=== PATIENT | male | born 2000 | race Caucasian/White ===

== ENCOUNTER 2022-08-22 07:31 | Emergency (ER) | payer OTHER, SELFPAY ==
[2022-08-22 07:40] VITALS: BP 105/72; PULSE 96; RESP 16; TEMP 36; O2SAT 95; BMI 28.3
--- NOTE | 2022-08-22 07:53 | CRLHL7_ITS ---
For Patients: As a result of the Century Cures Act, medical imaging exams and procedure reports are released immediately into your electronic medical record. You may view this report before your referring provider. If you have questions, please contact your health care provider. INDICATION: Right lower quadrant pain. TECHNIQUE: CT abdomen and pelvis without contrast. COMPARISON: None. FINDINGS: Lower chest: Unremarkable. Liver: Normal in size and attenuation. No suspicious masses. Gallbladder and bile ducts: No stones or inflammation. No biliary dilatation. Pancreas: Unremarkable. No mass or inflammation. Spleen: Normal in size. No masses. Adrenal glands: Normal in size. No nodules. Kidneys: 3 millimeter stone at the right UVJ results in trace right hydronephrosis. No other urinary tract calculi. No left hydronephrosis. GI tract: Unremarkable. Normal in caliber. No sign of mass or inflammation. Normal appendix. Vasculature: Abdominal aorta is normal in caliber. Lymph nodes: No lymphadenopathy. Peritoneum/Abdominal Wall: Unremarkable. No sign of mass or infiltration. No free air or significant free fluid. Pelvis: Unremarkable. No pelvic masses. Bones: No acute osseous abnormality. Chronic appearing slight fragmentation in the anterior-inferior aspect of the right sacrum adjacent to the sacroiliac joint (coronal series 7, image 87), likely developmental or potentially reflective of remote trauma or inflammation. IMPRESSION: 3 millimeter stone at the right UVJ results in trace right hydronephrosis. Please note that all CT scans at this facility use dose modulation, iterative reconstruction, and/or weight-based dosing when appropriate to reduce radiation dose to as low as reasonably achievable. Dictated by Geovanni So MD @ 08/22/2022 9:01:22 AM (Electronically Signed)
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
[2022-08-22] MEDS: ONDANSETRON 2 MG/ML inj 4 MG IVP (08:08)
[2022-08-22] MEDS: KETOROLAC 15 MG/ML inj IVP (08:08)
[2022-08-22 08:22] LABS: Basophils Absolute Auto 0.03 K/uL (0.00-0.30); Basophils Percent Auto 0.5 % (0.0-3.0); Eosinophils Absolute Auto 0.14 K/uL (0.00-0.50); Eosinophils Percent Auto 2.1 % (0.0-7.0); Hematocrit 42.8 % (37.0-53.0); Hemoglobin* 14.7 gm/dL (13.5-17.5); Lymphocytes Percent Auto 18.2 % (20-44); Mean Corpuscular HGB Conc 34 gm/dL (32-36); Mean Corpuscular Hemoglobin 30 pg (26-34); Mean Corpuscular Volume 87 fL (80-100); Monocytes Percent Auto 8.3 % (0.0-11.0); Neutrophils Absolute Auto 4.67 K/uL (1.7-7.0); Neutrophils Percent Auto 70.9 % (42.0-72.0); Platelet Count* 175 K/uL (140-440); RDW Coefficient of Variation % 11.8 % (11.5-15.5); Red Blood Count 4.94 m/uL (4.30-5.90); White Blood Count* 6.59 K/uL (4.50-11.00)
[2022-08-22 08:28] LABS: Slide Review Reflex No
[2022-08-22 08:29] LABS: Appearance Urine Slightly Cloudy (Clear); Bilirubin Urine Negative (Negative); Blood Urine 3+ (Negative); Color Urine Yellow (Yellow); Glucose Urine Negative (Negative); Ketones Urine 1+ (Negative); Leukocyte Esterase Urine Negative (Negative); Nitrite Urine Negative (Negative); Protein Urine 1+ (Negative); Urobilinogen Urine 0.2 (0.2-1.0); pH Urine 8.5 (5.0-8.5)
[2022-08-22 08:33] LABS: Chloride* 105 mmol/L (96-114); Potassium* 3.6 mmol/L (3.6-5.1); Sodium* 137 mmol/L (135-149)
[2022-08-22] MEDS: 0.9 % SODIUM CHLORIDE 1000 ml 1,000 ML IV (08:35)
[2022-08-22 08:36] LABS: Blood Urea Nitrogen* 12 mg/dL (5-24); Carbon Dioxide* 20 mmol/L (20-32); Est. Creatinine Clearance* 101.65; Estimated Glomerular Filt Rate 110 ml/min
[2022-08-22 08:37] LABS: Calcium* 9.7 mg/dL (8.4-10.6); Glucose* 147 mg/dL (60-115)
[2022-08-22 08:39] LABS: Amorphous Sediment Urine Moderate; Bacteria Urine Few; Squamous Epithelial Cell Urine Few (None-Few)
--- NOTE | 2022-08-22 08:39 | ED.NURSE ---
pain has improved after receiving the Toradol 15 mg IVP. rating at 1/10 scale. Infusing the 0.9% normal saline one liter now.
== END 2022-08-22 09:50 | disposition home or self-care (01) ==
PROVIDERS: Family Medicine; Emergency Provider Family Medicine
DX: N23 Unspecified renal colic (principal); N20.0 Calculus of kidney
CPT/HCPCS: 36415; 74176; 80048; 81001; 85025; 87086; 96374; 96375; 99284; J1885; J2405; J7030

== ENCOUNTER 2022-12-06 21:20 | Emergency (ER) | payer OTHER, SELFPAY ==
[2022-12-06 21:59] VITALS: BP 123/86; PULSE 100; RESP 20; TEMP 36.6; O2SAT 98; BMI 27.9
--- NOTE | 2022-12-06 22:45 | ED_ITS ---
HPI - General Adult General Chief complaint: Abdominal Pain Stated complaint: Abdominal pain Time Seen by Provider: 12/06/22 22:45 History of Present Illness HPI narrative: Pt aox4, ABCs intact. Pt arrives with significant other for evaluation of over abdominal pain since last night. Patient states that he has a hx of irregular bowel movements and feels like he needs to have one but is unable. Patient states that he did have a bowel movement this morning that was like snot states that it might feel like a prior kidney stone. Patient did take left over ketorolac and it only helped last night, he states that he tried to take it again tonight but had no relief in his pain. Patient also nauseated and had emesis x1, denies any difficulty urinating. Only relief comes from heating pack and laying flat. 22-year-old man presenting to the emergency department with concern of abdominal pain History could be stones of the beginning of this severe cramping in the suprapubic area felt similar. It took ketorolac and maybe that helped initially. Did not help today. Stool today was low mucousy had a stool yesterday as well. Does not describe any hematochezia. There has been no fever. He did vomit once on the way over here except was due to nerves. Seems to feel better with a heating pack and lying flat. Related Data Previous Rx's Medication Instructions Recorded tamsulosin 0.4 mg capsule (Flomax) 0.4 mg PO DAILY #15 caps 12/07/22 Allergies Allergy/AdvReac Type Severity Reaction Status Date / Time No Known Drug Allergies Allergy Verified 12/06/22 21:59 Review of Systems Status of ROS: Reports: 6 or more systems reviewed and unremarkable except as noted in History and below [facility] Social History Smoking Status: Current every day smoker Do you use any of these nicotine containing products: Vaping Products Second hand tobacco smoke exposure: No How often do you have a drink containing alcohol: 4 or more times a week How many standard drinks containing alcohol do you have on a typical day: 1 or 2 How often do you have six or more drinks on one occasion: Never AUDIT-C Alcohol total score: 4 Non-prescribed substance use: marijuana (any form) service: No Exam Narrative: Exam Narrative: Pleasant. NAD. Breathing easily. Skin is warm and dry. Well-perfused peripherally without edema. Lungs are clear. Heart is elevated in rate and in a regular rhythm. Abdomen with normoactive bowel sounds is soft however he is moderately uncomfortable to deep palpation suprapubic area. I do not appreciate mass though. No flank pain. Const: Vital Signs, click to edit/add: Vital Signs - 24 hr 12/06/22 21:59 Temperature 98 F Pulse Rate [Pulse Oximeter] 100 Respiratory Rate 20 Blood Pressure [Ri ght Upper Arm] 123/86 Pulse Oximetry 98 Oxygen Delivery Me thod Room Air Documenting provider has reviewed patient's vital signs: yes Course Vital Signs Vital signs: Initial Vital Signs Temperature 98 F 12/06/22 21:59 Temperature Source Temporal Artery Scan 12/06/22 21:59 Pulse Rate 100 12/06/22 21:59 Respiratory Rate 20 12/06/22 21:59 Blood Pressure 123/86 12/06/22 21:59 Blood Pressure Mean 98 12/06/22 21:59 Pulse Oximetry 98 12/06/22 21:59 Oxygen Delivery Method Room Air 12/06/22 21:59 Vital Signs Temperature 98 F 12/06/22 21:59 Pulse Rate 100 12/06/22 21:59 Respiratory Rate 20 12/06/22 21:59 Blood Pressure 123/86 12/06/22 21:59 Pulse Oximetry 98 12/06/22 21:59 Oxygen Delivery Method Room Air 12/06/22 21:59 Temperature 98.4 F 12/07/22 00:41 Pulse Rate 79 12/07/22 00:41 Respiratory Rate 16 12/07/22 00:41 Blood Pressure 112/71 12/07/22 00:41 Pulse Oximetry 98 12/06/22 21:59 Oxygen Delivery Method Room Air 12/06/22 21:59 Medical Decision Making MDM Narrative Medical decision making narrative: Leading the differential I would say is diverticulitis verses ureteral ston e/colic. Doubtful appendicitis given location of pain. Possible mesenteric adenitis. Possibly urinary retention maybe constipation. Check labs looking for red flags and IV hydrate, ketorolac. I might expect a young man like this creatinine to be a little bit lower. His was 1.1. White count is reassuring. 2+ protein in urine. Did receive tamsulosin for what seems to be ureteral colic. I am thinking may have passed a small stone but I do not think warrants imaging at this point; he is in agreement and would like to defer. See patient discharge plan Medical Records Medical records reviewed: Yes I reviewed the patient's medical records Lab Data Lab results reviewed: Yes I reviewed the patient's lab results Labs: Lab Results 12/06/22 12/06/22 Range/Units 23:00 23:15 WBC 6.98 (4.50-11.00) K/uL RBC 4.94 (4.30-5.90) m/uL Hgb 14.8 (13.5-17.5) gm/dL Hct 43.3 (37.0-53.0) % MCV 88 (80-100) fL MCH 30 (26-34) pg MCHC 34 (32-36) gm/dL RDW Coeff of Radha 11.7 (11.5-15.5) % Plt Count 230 (140-440) K/uL Neut % (Auto) 68.1 (42.0-72.0) % Lymph % (Auto) 21.2 (20-44) % [place] % (Auto) 9.2 (0.0-11.0) % Eos % (Auto) 1.0 (0.0-7.0) % Baso % (Auto) 0.4 (0.0-3.0) % Neut # (Auto) 4.75 (1.7-7.0) K/uL Lymph # (Auto) 1.48 (0.90-2.90) K/uL [place] # (Auto) 0.60 (0.00-0.90) K/UL Eos # (Auto) 0.07 (0.00-0.50) K/uL Baso # (Auto) 0.03 (0.00-0.30) K/uL Abs Immat Gran (auto) 0.01 (0.00-0.30) K/uL Imm/Tot Granulo (auto) 0.1 % Sodium 139 (135-149) mmol/L Potassium 3.8 (3.6-5.1) mmol/L Chloride 107 (96-114) mmol/L Carbon Dioxide 23 (20-32) mmol/L Anion Gap 9 (7-15) mEq/L BUN 16 (5-24) mg/dL Creatinine 1.1 (0.5-1.5) mg/dL Estimated Creat Clear 95.06 Estimated GFR 97 ml/min Glucose 90 (60-115) mg/dL Calcium 9.7 (8.4-10.6) mg/dL C-Reactive Protein < 0.5 L (0.5-1.0) mg/dL Urine Color Yellow (Yellow) Urine Appearance Slightly Cloudy A (Clear) Urine pH 7.0 (5.0-8.5) Ur Specific [place] 1.020 (1.000-1.030) Urine Protein 2+ A (Negative) Urine Glucose (UA) Negative (Negative) Urine Ketones Trace A (Negative) Urine Blood Trace-intact A (Negative) Urine Nitrite Negative (Negative) Urine Bilirubin Negative (Negative) Urine Urobilinogen 0.2 (0.2-1.0) Ur Leukocyte Esterase Negative (Negative) Urine RBC 0-2 (0-2) Urine WBC 0-2 (0-5) Ur Squamous Epith Cells Few (None-Few) Amorphous Sediment Moderate A (None) Urine Bacteria Few A (None) Discharge Plan Discharge Clinical Impression: Ureteral colic, Suprapubic abdominal pain Patient Disposition: Home w/ Parent or Adult Condition: Improved Additional Instructions: I wonder if you may have a small stone about to pass. Consider straining your urine over this next week. Often though nothing is found. Focus on hydration. Can take up to 800 mg of ibuprofen or up to 1000 mg of acetaminophen per dose. Alternative to the ibuprofen could be up to 500 mg naproxen 2 times daily. Return for marked in persistent increase in pain, fever, intractable vomiting. Take Flomax through 1 week or until resolution of discomfort. Zofran and [place] from [facility]. Keep in mind that each tablet of [place] contains 325 mg of acetaminophen. Can take ibuprofen or naproxen with [place]. Prescriptions: New tamsulosin [Flomax] 0.4 mg capsule 0.4 mg PO DAILY Qty: 15 0RF Follow Up/Referrals: Provider,Not a Local [Primary Care Provider] - Stand Alone Forms: [employer] Info Instructions
[2022-12-06 23:13] LABS: Basophils Absolute Auto 0.03 K/uL (0.00-0.30); Basophils Percent Auto 0.4 % (0.0-3.0); Eosinophils Absolute Auto 0.07 K/uL (0.00-0.50); Hematocrit 43.3 % (37.0-53.0); Hemoglobin* 14.8 gm/dL (13.5-17.5); Immature Granulocytes Abs Auto 0.01 K/uL (0.00-0.30); Immature Granulocytes Pct Auto 0.1 %; Lymphocytes Absolute Auto 1.48 K/uL (0.90-2.90); Lymphocytes Percent Auto 21.2 % (20-44); Mean Corpuscular HGB Conc 34 gm/dL (32-36); Mean Corpuscular Hemoglobin 30 pg (26-34); Mean Corpuscular Volume 88 fL (80-100); Monocytes Percent Auto 9.2 % (0.0-11.0); Neutrophils Absolute Auto 4.75 K/uL (1.7-7.0); Neutrophils Percent Auto 68.1 % (42.0-72.0); Platelet Count* 230 K/uL (140-440); RDW Coefficient of Variation % 11.7 % (11.5-15.5); Red Blood Count 4.94 m/uL (4.30-5.90); White Blood Count* 6.98 K/uL (4.50-11.00)
[2022-12-06] MEDS: 0.9 % SODIUM CHLORIDE 1000 ml 1,000 ML IV (23:13)
[2022-12-06] MEDS: KETOROLAC 30 MG/ML inj IVP (23:13)
[2022-12-06] MEDS: ONDANSETRON 2 MG/ML inj 4 MG IVP (23:14)
[2022-12-06 23:19] LABS: Slide Review Reflex No
[2022-12-06 23:20] LABS: Appearance Urine Slightly Cloudy (Clear); Bilirubin Urine Negative (Negative); Blood Urine Trace-intact (Negative); Color Urine Yellow (Yellow); Glucose Urine Negative (Negative); Ketones Urine Trace (Negative); Leukocyte Esterase Urine Negative (Negative); Nitrite Urine Negative (Negative); Protein Urine 2+ (Negative); Urobilinogen Urine 0.2 (0.2-1.0)
[2022-12-06 23:23] LABS: Amorphous Sediment Urine Moderate; Bacteria Urine Few; RBC Urine 0-2 (0-2); Squamous Epithelial Cell Urine Few (None-Few); WBC Urine 0-2 (0-5)
[2022-12-06 23:24] LABS: Chloride* 107 mmol/L (96-114); Potassium* 3.8 mmol/L (3.6-5.1); Sodium* 139 mmol/L (135-149)
[2022-12-06 23:27] LABS: Creatinine* 1.1 mg/dL (0.5-1.5); Est. Creatinine Clearance* 95.06; Estimated Glomerular Filt Rate 97 ml/min
[2022-12-06 23:28] LABS: Anion Gap 9 mEq/L (7-15); Blood Urea Nitrogen* 16 mg/dL (5-24); Calcium* 9.7 mg/dL (8.4-10.6); Carbon Dioxide* 23 mmol/L (20-32); Glucose* 90 mg/dL (60-115)
[2022-12-06 23:32] LABS: C Reactive Protein* < 0.5 mg/dL (0.5-1.0)
[2022-12-07 00:09] VITALS: TEMP 36.6
[2022-12-07] MEDS: TAMSULOSIN HCL 0.4 MG CAPSULE PO (00:28)
[2022-12-07 00:41] VITALS: BP 112/71; PULSE 79; RESP 16; TEMP 36.9
== END 2022-12-07 00:42 | disposition home or self-care (01) ==
PROVIDERS: Emergency Provider Family Medicine
DX: N23 Unspecified renal colic (principal); R10.30 Lower abdominal pain, unspecified
CPT/HCPCS: 36415; 80048; 81001; 85025; 86140; 87086; 96374; 96375; 99283; 99284; A9270; J1885; J2405; J7030

== ENCOUNTER 2023-07-13 10:08 | Emergency (ER) | payer OTHER, SELFPAY ==
[2023-07-13 10:12] VITALS: BP 115/79; PULSE 82; RESP 18; TEMP 37.4; O2SAT 100; BMI 25.8
--- NOTE | 2023-07-13 10:39 | XR_ITS ---
Patient: GIAN LAWSON Facility:?[facility] Patient ID:?[id number] Site Patient ID:?[id number]. Site :?[id number] Study:?XRay-Chest 2V-07/13/2023 10:48:10 AM Ordering Physician:NAHUM Final Report: Indication: Chest pain Technique: PA and lateral views of the chest. Comparison: None. Findings: Normal cardiomediastinal silhouette. No focal consolidation, pleural effusions, or visualized pneumothorax. Impression: No acute cardiopulmonary disease. Dictated by John Zuluaga MD @ 07/13/2023 10:49:35 AM Signed by:?John Zuluaga MD @07/13/2023 10:49:35 AM (Electronic Signature)
--- NOTE | 2023-07-13 10:44 | ED.CHESTPAIN ---
HPI - Chest Pain General Date Seen: 07/13/23 Chief Complaint: Chest Pain Stated Complaint: chest pain Time Seen by Provider: 07/13/23 10:08 Source: patient Mode of arrival: ambulatory Limitations: no limitations History of Present Illness HPI narrative: Patient is a 22-year-old male presenting for left precordial chest pain that is intermittent and sharp in nature. Has been going on for the past 5 days. Denies ever having symptoms like this before. States in the pain does occur he does feel like it is hard to breathe but otherwise is not having any shortness of breath. Pain does radiate from his sternum to left side of his chest. Does note he has had some worsening tightness with vaping so has been trying of May as since the symptoms started. Also states he has some brain fog in the patient's girlfriend thinks he looks more yellow than normal. Denies having any cardiac problems but does have an uncle that recently from heart issues. Denies fevers, chills, weakness, numbness, headache, vision changes, abdominal pain, diarrhea, constipation. No history of blood clots, hormone use, unilateral leg swelling. No other concerns noted at this time Related Data Home Medications Medication Instructions Recorded Confirmed No Known Home Medications 07/13/23 07/13/23 Allergies Allergy/AdvReac Type Severity Reaction Status Date / Time No Known Drug Allergies Allergy Verified 12/06/22 21:59 Review of Systems Status of ROS Reports: 10 or more systems reviewed and unremarkable except as noted in History and below PFSH PFS Social History Smoking Status: Current every day smoker Do you use any of these nicotine containing products: Vaping Products Second hand tobacco smoke exposure: No How often do you have a drink containing alcohol: 4 or more times a week How many standard drinks containing alcohol do you have on a typical day: 1 or 2 How often do you have six or more drinks on one occasion: Never AUDIT-C Alcohol total score: 4 Non-prescribed substance use: marijuana (any form) service: No Exam Narrative Exam Narrative: Const: Well-nourished, Well-developed, in no distress Eyes: PERRL, no conjunctival injection, and symmetrical lids HENT: Atraumatic external nose and ears. Moist mucous membranes. Neck: Symmetric, trachea midline, No thyromegaly. CVS: RRR, No murmurs or gallops. Peripheral pulses 2+ and equal in all extremities RESP: Unlabored respiratory effort. Clear to auscultation bilaterally. GI: Nontender/Nondistended, No rebound or guarding. MSK:Extremities w/o deformity, Normal Active ROM Skin: Warm, Dry. No rashes or lesions. Neuro: Normal Muscle tone, No focal neurological deficits. Psych: Awake, Alert, & Oriented x3. Appropriate mood and affect. Const Vital Signs, click to edit/add: Vital Signs - 24 hr 07/13/23 10:12 07/13/23 10:51 07/13/23 11:15 Temperature 99.4 F Pulse Rate 72 63 Pulse Rate [Pulse Oximeter] 82 Respiratory Rate 18 12 Blood Pressure Blood Pressure [Left Upper Arm] 115/79 Pulse Oximetry 100 96 97 Oxygen Delivery Method Room Air 07/13/23 11:30 07/13/23 12:00 Temperature Pulse Rate 75 57 L Pulse Rate [Pulse Oximeter] Respiratory Rate 16 14 Blood Pressure 113/74 Blood Pressure [Left Upper Arm] Pulse Oximetry 97 97 Oxygen Delivery Method Course Vital Signs Vital signs: Initial Vital Signs Temperature 99.4 F 07/13/23 10:12 Temperature Source Temporal Artery Scan 07/13/23 10:12 Pulse Rate 82 07/13/23 10:12 Pulse Rhythm Regular 07/13/23 10:12 Respiratory Rate 18 07/13/23 10:12 Blood Pressure 115/79 07/13/23 10:12 Blood Pressure Mean 91 07/13/23 10:12 Blood Pressure Position Sitting 07/13/23 10:12 Pulse Oximetry 100 07/13/23 10:12 Oxygen Delivery Method Room Air 07/13/23 10:12 Vital Signs Temperature 99.4 F 07/13/23 10:12 Pulse Rate 82 07/13/23 10:12 Respiratory Rate 18 07/13/23 10:12 Blood Pressure 115/79 07/13/23 10:12 Pulse Oximetry 100 07/13/23 10:12 Oxygen Delivery Method Room Air 07/13/23 10:12 Temperature 99.4 F 07/13/23 10:12 Pulse Rate 57 L 07/13/23 12:00 Respiratory Rate 14 07/13/23 12:00 Blood Pressure 113/74 07/13/23 12:00 Pulse Oximetry 97 07/13/23 12:00 Oxygen Delivery Method Room Air 07/13/23 10:12 MDM - Chest Pain MDM Narrative Medical decision making narrative: Patient is a 22-year-old male presenting to emergency department for chest pain. Chest pains intermittent and sharp in nature. Based on his description it does sound like precordial catch syndrome. I will order EKG and troponin showed for signs of ACS. Also ordered chest x-ray, CBC, BMP, COVID/flu/RSV. He is currently asymptomatic. Unlikely to be PE as he is PERC negative. His girlfriend but I do not notice any jaundice on exam. Point of care troponin shows no concerning abnormalities EKG shows no concerning findings. Chest x-ray reviewed by myself and the radiologist shows no concerning findings. Rest was lab work shows no concerning findings. Liver enzymes within normal limits and no signs of jaundice. Has not had any further symptoms since he has been in the emergency department. Concerning symptoms are going on for 5 days I do not believe we need to repeat the troponin. At this time he will be discharged home and I do think this is precordial catch syndrome. He is agreeable to this plan. Lab Data Labs: Lab Results 07/13/23 07/13/23 07/13/23 Range/Units 10:42 10:54 12:45 WBC 5.69 (4.50-11.00) K/uL RBC 4.86 (4.30-5.90) m/uL Hgb 14.4 (13.5-17.5) gm/dL Hct 42.1 (37.0-53.0) % MCV 87 (80-100) fL MCH 30 (26-34) pg MCHC 34 (32-36) gm/dL RDW Coeff of Radha 11.8 (11.5-15.5) % Plt Count 198 (140-440) K/uL Neut % (Auto) 64.6 (42.0-72.0) % Lymph % (Auto) 23.9 (20-44) % [place] % (Auto) 9.0 (0.0-11.0) % Eos % (Auto) 1.8 (0.0-7.0) % Baso % (Auto) 0.5 (0.0-3.0) % Neut # (Auto) 3.68 (1.7-7.0) K/uL Lymph # (Auto) 1.36 (0.90-2.90) K/uL [place] # (Auto) 0.50 (0.00-0.90) K/UL Eos # (Auto) 0.10 (0.00-0.50) K/uL Baso # (Auto) 0.03 (0.00-0.30) K/uL Abs Immat Gran (auto) 0.01 (0.00-0.30) K/uL Imm/Tot Granulo (auto) 0.2 % Sodium 139 (135-149) mmol/L Potassium 4.2 (3.6-5.1) mmol/L Chloride 105 (96-114) mmol/L Carbon Dioxide 26 (20-32) mmol/L Anion Gap 8 (7-15) mEq/L BUN 19 (5-24) mg/dL Creatinine 1.1 (0.5-1.5) mg/dL Estimated Creat Clear 98.48 Estimated GFR 97 ml/min Glucose 100 (60-115) mg/dL Calcium 9.8 (8.4-10.6) mg/dL Total Bilirubin 0.5 (0.1-1.5) mg/dL Direct Bilirubin 0.1 (0.0-0.5) mg/dL AST 24 (12-35) U/L ALT 20 (4-50) U/L Alkaline Phosphatase 58 (40-150) U/L Total Protein 7.3 (6.0-8.3) g/dL Albumin 4.6 (3.3-5.0) g/dL SARS-CoV-2 (PCR) Negative SARS-CoV-2 (Negative) Influenza Type A (PCR) Negative PCR FLU A (Negative) Influenza Type B (PCR) Negative PCR FLU B (Negative) RSV (PCR) Negative PCR RSV (Negative) Lab Acknowledgement Test Added POC Troponin I 0.00 L (0.01-0.04) ng/ml Imaging Data Chest x-ray: Attestation: I have reviewed the pertinent imaging results. Radiologist's impression: No acute cardiopulmonary disease. Dictated by John Zuluaga MD @ 07/13/2023 10:49:35 AM ECG Data Attestation: I personally reviewed and interpreted this ECG as follows: Prior ECG tracings: not available for review Interpretation: Normal sinus rhythm at a rate of 98 beats per minute, normal intervals, normal axis, no ST or T-wave abnormalities. Incomplete right bundle-branch block Discharge Plan Discharge Clinical Impression: Atypical chest pain Patient Disposition: Home, Self-Care Condition: Stable Instructions: Noncardiac Chest Pain (ED) Additional Instructions: The description of your pain does sound like precordial catch syndrome. Return to emergency department for new or worsening symptoms. If chest pain persists for extended period of time or year and short of breath even when you are not having the pain but is also a reason to be revaluated Prescriptions: No Action No Known Home Medications Follow Up/Referrals: Provider,Not a Local [Referring] - Stand Alone Forms: [place] Info Instructions
[2023-07-13 10:51] VITALS: PULSE 72; O2SAT 96
[2023-07-13 11:03] LABS: Basophils Absolute Auto 0.03 K/uL (0.00-0.30); Basophils Percent Auto 0.5 % (0.0-3.0); Eosinophils Percent Auto 1.8 % (0.0-7.0); Hematocrit 42.1 % (37.0-53.0); Hemoglobin* 14.4 gm/dL (13.5-17.5); Immature Granulocytes Abs Auto 0.01 K/uL (0.00-0.30); Immature Granulocytes Pct Auto 0.2 %; Lymphocytes Absolute Auto 1.36 K/uL (0.90-2.90); Lymphocytes Percent Auto 23.9 % (20-44); Mean Corpuscular HGB Conc 34 gm/dL (32-36); Mean Corpuscular Hemoglobin 30 pg (26-34); Mean Corpuscular Volume 87 fL (80-100); Neutrophils Absolute Auto 3.68 K/uL (1.7-7.0); Neutrophils Percent Auto 64.6 % (42.0-72.0); Platelet Count* 198 K/uL (140-440); RDW Coefficient of Variation % 11.8 % (11.5-15.5); Red Blood Count 4.86 m/uL (4.30-5.90); Slide Review Reflex No; White Blood Count* 5.69 K/uL (4.50-11.00)
[2023-07-13 11:12] LABS: Chloride* 105 mmol/L (96-114); Sodium* 139 mmol/L (135-149)
[2023-07-13 11:13] LABS: Potassium* 4.2 mmol/L (3.6-5.1)
[2023-07-13 11:15] VITALS: PULSE 63; RESP 12; O2SAT 97
[2023-07-13 11:15] LABS: Anion Gap 8 mEq/L (7-15); Carbon Dioxide* 26 mmol/L (20-32); Creatinine* 1.1 mg/dL (0.5-1.5); Est. Creatinine Clearance* 98.48; Estimated Glomerular Filt Rate 97 ml/min
[2023-07-13 11:16] LABS: Blood Urea Nitrogen* 19 mg/dL (5-24); Calcium* 9.8 mg/dL (8.4-10.6); Glucose* 100 mg/dL (60-115)
--- OUTSIDE RECORDS SUMMARY | 2023-07-13 11:18 | XMS_ITS | Clinical Summary ---
Author Name Unknown Organization [facility] Address [place], [place] [address] Care Team Providers Care Warehouse Foreman Name Role Phone Pcp, No Primary Care Provider Unavailabl e Allergies No known active allergies Medications Medication Sig Dispensed Refills Start Date End Date Status polyethylene glycol (Miralax) 17 g per packet packet Mix 17 g in liquid then take by mouth once daily. Active Active Problems Problem Noted Date Diagnosed Date Severe episode of recurrent major depressive disorder, without psychotic features 10/31/2017 Generalized anxiety disorder 10/31/2017 Encounters Date Type Department Care Team Description 07/13/[address] [facility] [address] [place] [address] Pcp, No Chest Pain 06/26/2023 10:30 AM CDT Ancillary Procedure [facility] [address] [place] [address] 06/26/2023 Travel 06/12/[address] [facility] [address] [place] [address] Chelsea Gerardo, DO Results 06/09/2023 11:30 AM CDT Ancillary Procedure [address] [address] 06/09/2023 10:25 AM CDT Office Visit [address] [address] Chelsea Gerardo, DO Constipation (LLQ pain x month ) 06/09/2023 Travel 05/24/2023 7:55 AM CDT Office Visit [address] [address] Chelsea Gerardo, Constipation (has been taking Miralax and tried x-lax. Has been noticing some blood when wiping due to straining. /Has family history of colon cancer. ); Immunization/Injectio n 05/24/2023 Travel 05/17/[address] [facility] [address] [place] [address] Suzie Dubon PA Questions 05/08/2023 2:20 PM CDT Office Visit [facility] [address] [place] [address] Lynn Espinoza MD Abdominal Pain (lower abdomin, consistent pain x1 week, stabbing/squeezing pain, pressure on something in there ) 05/08/2023 Travel from Last 3 Months Immunizations Name Administration Dates Next Due DTaP 10/05/2005, 3,04/13/2001,02/09,2000 HIB-HepB (Comvax) 04/29/2002,02/09/2001,12/06/19 HPV 9 (Gardasil 9) 09/06/2017 Hepatitis A (Peds) 09/06/2017 Inactivated Polio Vaccine 10/05/2005,,02/09/2001,12/05 MMR 10/05/2005,10/16/2001 Meningococcal Vaccine (Menveo) 09/06/2017 Pneumococcal conj 13-Valent (Prevnar 13) 10/16/2001,07/13/2001,04/13/2001,02/09 Tdap 05/24/2023,09/05/2012 Varicella Vaccine 10/05/2005,10/16/2001 Family History Medical History Relation Name Comments Cancer-colon Maternal Grandfather Crohn's disease Paternal Grandmother Relation Name Status Comments Maternal Grandfather Paternal Grandmother Social History Tobacco Use Types Packs/Day Years Used Date Smoking Tobacco: Some Days Smokeless Tobacco: Never Tobacco Cessation:Ready to Q uit: Yes; Counseling Given: Yes Alcohol Use Standard Drinks/Week Comments Yes 3 (1 standard drink = 0.6 oz pur e alcohol) PHQ-2 Answer Date Recorded PHQ-2 Score 5 11/08/2018 Social Connections Answer Date Recorded Frequency of Communication with Friends and Fami ly 0 05/08/2023 Financial Resource Strain Answer Date R ecorded Difficulty of Paying Living Expenses 3 05/08/2023 Difficulty of Paying Living Expenses Not on file 05/08/2023 Food Insecurity Answer Date Recorded Worried About Running Out of Food in the Last Ye ar 1 05/08/2023 Transportation Needs Answer Date Record ed Lack of Transportation (Medical) 1 05/08/2023 Housing Stability Answer Date Recorded Unable to Pay for Housing in the Last Year 1 05/08/2023 Sex and Gender Information Value Date Recorded Sex Assigned at Not on file Gender Identity Not on file Sexual Orientation Not on file Obstetrics History Last Filed Vital Signs Vital Sign Reading Time Taken Comments Blood Pressure 111/70 06/09/2023 10:40 AM CDT Pulse 85 06/09/2023 10:40 AM CDT Temperature 36.4 ??C (97.6 ??F) 06/09/2023 10:40 AM C DT Respiratory Rate 20 09/04/2019 1:48 PM CDT Oxygen Saturation 100% 06/09/2023 10:40 AM CDT Inhaled Oxygen Concentration - - Weight 77.7 kg (171 lb 6.4 oz) 06/09/2023 10:40 AM CDT Height 170.2 cm (5' 7) 06/09/2023 10:40 AM CDT Body Mass Index 26.85 06/09/2023 10:40 AM CDT Plan of Treatment Health Maintenance Due Date Last Done Comments Pneumococcal series for age 6-64 (1 of 1 - PPSV23 or PCV20) 2006 10/16/2001, 07/13/2001, 04/13/2001, Additional history exists HIV for age 15-65 10/10/2015 HPV series for age 9-26 (2 - Male 3-dose series) 10/04/2017 09/06/2017 Hepatitis C screening for ag e 18-79 2018 Depression screening for age 12+ 11/09/2019 11/08/2018, 09/28/2018, 09/25/2018, Additional history exists COVID-19 vaccine series (1 - 2022- season) 2022 Influenza for age 9-49 10/29/2023 BMI (ht and wt on same day) for age 18+ 06/08/2024 06/09/2023 Tetanus booster 05/23/2033 05/24/2023, 09/05/2012 Tdap Completed 05/24/2023, 09/05/2012 Procedures Procedure Name Priority Date/Time Associated Diagnosis Comments US ABDOMEN COMPLETE Routine 06/26/2023 1 0:53 AM CDT Abdominal pain, LLQ (left lower quadrant) XR HIP 1 VIEW W PELVIS BILAT Routine 06/09/2023 11:34 AM CDT Bilateral groin pain Bilateral hip pain from Last 3 Months Results * US ABDOMEN COMPLETE (06/26/2023 10:53 AM CDT) Anatomical Region Laterality Modality Abdomen, LIVER, KIDNEYS, PANCREAS, GALLBLADDER, SPLEEN Ultrasound 06/26/2023 6:57 PM CDT Impressions 06/26/2023 6:57 PM CDT Unremarkable abdominal ultrasound. Dictated by Brenda Gay MD @ 06/26/2023 6:57:58 PM (Electronically Signed) Narrative 06/26/2023 6:57 PM CDT For Patients: ??As a result of the Century Cures Act, medical imaging exams and procedure reports are released immediately into your electronic medical record. ??You may view this report before your referring provider. ??If you have questions, please contact your health care provider. CLINICAL HISTORY: Abdominal pain FINDINGS: Sonographic imaging demonstrates normal size and uniform echotexture of the liver. The spleen is of normal size. The pancreas appears normal. The proximal abdominal aorta and IVC appear normal. There is no evidence of ascites. The gallbladder is of normal size and there is no evidence of sludge or stones within the gallbladder lumen. The gallbladder wall measures 2 mm in thickness. The common bile duct measures 4 mm in size within the elaine hepatis. The kidneys appear symmetric. The right kidney measures ??10.3 cm in length and the left kidney measures 10.5 ??cm. There is no evidence of a renal calculus or hydronephrosis. Procedure Note Brenda Gay MD - 06/26/2023 For Patients: As a result of the Cures Act, medical imagingexams and procedure reports are released immediately into your electronicmedical record. You may view this report before your referring provider.If you have questions, please contact your health care provider. CLINICAL HISTORY: Abdominal pain FINDINGS: Sonographic imaging demonstrates normal size and uniform echotexture ofthe liver. The spleen is of normal size. The pancreas appears normal. Theproximal abdominal aorta and IVC appear normal. There is no evidence ofascites. The gallbladder is of normal size and there is no evidence ofsludge or stones within the gallbladder lumen. The gallbladder wallmeasures 2 mm in thickness. The common bile duct measures 4 mm in sizewithin the elaine hepatis. The kidneys appear symmetric. The right kidneymeasures 10.3 cm in length and the left kidney measures 10.5 cm. Thereis no evidence of a renal calculus or hydronephrosis. IMPRESSION: Unremarkable abdominal ultrasound. Dictated by Brenda Gay MD @ 06/26/2023 6:57:58 PM (Electronically Signed) Chelsea Gerardo DO US * XR HIP 1 VIEW W PELVIS BILAT (06/09/2023 11:34 AM CDT) Anatomical Region Laterality Modality HIPS, HIPL, HIPR, Pelvis Compute d Radiography 06/09/2023 3:04 PM CDT Narrative 06/09/2023 3:04 PM CDT For Patients: ??As a result of the Cures Act, medical imaging exams and procedure reports are released immediately into your electronic medical record. ??You may view this report before your referring provider. ??If you have questions, please contact your health care provider. Indication: Bilateral groin pain Technique: Pelvis and both hips 3 views Comparison: None Findings: Bones: Alignment is normal. No fractures or bone lesions. ?? Joint spaces: Joint spaces are preserved. No degenerative changes. ?? Soft tissues: Unremarkable. ?? Impression: No findings to explain pain. Dictated by Chris Claros MD @ 06/09/2023 3:04:23 PM (Electronically Signed) Procedure Note Chris Claros MD - 06/09/2023 For Patients: As a result of the Cures Act, medical imagingexams and procedure reports are released immediately into your electronicmedical record. You may view this report before your referring provider.If you have questions, please contact your health care provider. Indication: Bilateral groin pain Technique: Pelvis and both hips 3 views Comparison: None Findings: Bones: Alignment is normal. No fractures or bone lesions. Joint spaces: Joint spaces are preserved. No degenerative changes. Soft tissues: Unremarkable. Impression: No findings to explain pain. Dictated by Chris Claros MD @ 06/09/2023 3:04:23 PM (Electronically Signed) Chelsea Gerardo DO GENERAL IMAGING from Last 3 Months Care Teams Warehouse Foreman Relationship Specialty Start Date End Date Pcp, No . PCP - General 05/08/23
[2023-07-13 11:30] VITALS: PULSE 75; RESP 16; O2SAT 97
[2023-07-13 11:38] LABS: PCR FLU A Negative PCR FLU A (Negative); PCR FLU B Negative PCR FLU B (Negative); PCR RSV Negative PCR RSV (Negative); SARS PCR* Negative SARS-CoV-2 (Negative)
[2023-07-13 12:00] VITALS: BP 113/74; PULSE 57; RESP 14; O2SAT 97
[2023-07-13 13:03] LABS: Albumin* 4.6 g/dL (3.3-5.0)
[2023-07-13 13:06] LABS: Alanine Aminotransferase* 20 U/L (4-50); Alkaline Phosphatase* 58 U/L (40-150); Aspartate Amino Transferase* 24 U/L (12-35); Bilirubin Direct* 0.1 mg/dL (0.0-0.5); Bilirubin Total* 0.5 mg/dL (0.1-1.5); Total Protein* 7.3 g/dL (6.0-8.3)
== END 2023-07-13 12:15 | disposition home or self-care (01) ==
PROVIDERS: Emergency Provider Student in an Organized Health Care Education/Training Program; PCP Family Medicine
DX: R07.9 Chest pain, unspecified (principal)
CPT/HCPCS: 36415; 71046; 80048; 80076; 84484; 85025; 87631; 93005; 99283; 99284; 99285